=== PATIENT | male | born 2005 | race Caucasian/White ===

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

== ENCOUNTER 2023-04-29 13:32 | Outpatient (CLI) | payer OTHER, SELFPAY ==
[2023-04-29 14:58] LABS: Influenza A QL RT-PCR Negative (Negative); Influenza B QL RT-PCR Negative (Negative); SARS-CoV-2 RNA PCR Negative (Negative); Strep Group A RT-PCR Detected (Negative)
== END 2023-04-29 13:33 | disposition home or self-care (01) ==
LOC: CHSLAB 13:37
PROVIDERS: PCP Internal Medicine; Visit Provider Nurse Practitioner Family
DX: M79.10 Myalgia, unspecified site (principal); R11.0 Nausea; R53.83 Other fatigue; Z20.822 Contact with and (suspected) exposure to COVID-19
CPT/HCPCS: 87636; 87651

== ENCOUNTER 2024-03-14 02:11 | Emergency (ER) | payer OTHER, SELFPAY ==
--- NOTE | 2024-03-14 02:18 | ED.PSYCH ---
HPI - Psych General Chief Complaint: Psychiatric Symptoms Stated Complaint: suicidal Time Seen by Provider: 03/14/24 02:17 Source: patient Mode of arrival: ambulatory Limitations: no limitations History of Present Illness HPI Narrative: 18-year-old male with depression and prior suicidal attempts / ideation was brought in by the police after he called the suicide hotline for -- suicidal ideation. He wants to stab himself in the neck. He has a prior history of attempting to hang himself. No history of drug or alcohol use. he has a positive family history of depression and suicidal ideation. His grandfather killed himself. His mother is depressed. MD complaint: suicidal ideation and feels depressed Onset (ago): day(s) Duration: constant History of same: Yes Relieving factors: none Exacerbating factors: none Context: other ( He finds college courses challenging) Associated psychiatric symptoms: depression Associated symptoms: denies other symptoms Treatments prior to arrival: none If self harm: admits thoughts of self harm Related Data Home Medications Medication Instructions Recorded Confirmed No Home Medications 03/14/24 03/14/24 Allergies Allergy/AdvReac Type Severity Reaction Status Date / Time Penicillins Allergy Mild Unverified 10/24/08 13:19 Review of Systems Review of Systems: All systems reviewed & are unremarkable except as noted in HPI and below Constitutional: Constitutional: Reports as per HPI and Reports no additional constitutional complaints Eyes: Eyes: Reports as per HPI and Reports no additional eye complaints ENT: Reports system reviewed and no additional complaints, except as documented and Reports as per HPI Cardiovascular: Cardiovascular: Reports as per HPI and Reports no additional cardiovascular complaints Respiratory: Respiratory: Reports as per HPI and Reports no additional respiratory complaints Gastrointestinal: Gastrointestinal: Reports as per HPI and Reports no additional gastrointestinal complaints Genitourinary: Genitourinary: Reports no additional male genitourinary complaints and Reports as per HPI Musculoskeletal: Musculoskeletal: Reports no additional musculoskeletal complaints and Reports as per HPI Integumentary/Breasts: Skin/Breast: Reports system reviewed and no additional complaints, except as docu and Reports as per HPI Neurologic: Reports system reviewed and no additional complaints, except as documented and Reports as per HPI Psychiatric: Psychiatric: Reports no additional psychiatric complaints, Reports as per HPI, Reports depression and Reports suicidal ideation Endocrine: Endocrine: Reports no additional endocrine complaints and Reports as per HPI Hematologic/Lymphatic: Hematologic/Lymphatic: Reports no additional hematologic/lymphatic complaints and Reports as per HPI Exam Narrative: vitals are stable Const: General: no acute distress Orientation/consciousness: patient oriented x3 Limitations: no limitations HENMT: Head: normal to inspection Ears: external ears normal Face/Nose/Sinus: Normal external nose present Face and sinus: normal facial exam Mouth: Yes Normal oral and palatal mucosa present Throat: posterior oropharynx normal Eyes: Conjunctivae: conjunctivae normal Pupils: Equal, round and reactive pupils present EOM: EOMs intact bilaterally Direct Ophthalmoscopy: no photophobia Neck: Neck: normal visual inspection, no lymphadenopathy and no meningeal signs Chest: Chest palpation & inspection: normal inspection of the chest Resp: Effort & Inspection: normal respiratory effort Auscultation: clear to auscultation bilaterally Cardio: Rate: regular rate Rhythm: regular rhythm GI: GI Palp: Yes Soft to palpation : General: Yes no CVA tenderness Back/Spine/Pelvis: Back: no CVA tenderness Skin: General skin exam: normal color Rashes: no rashes Wounds: no wounds Neuro: General: patient oriented x3, moves all extremit
--- NOTE | 2024-03-14 02:20 | PC.NURSE ---
patient was changed out into paper scrubs and went back to room 5.
--- NOTE | 2024-03-14 02:23 | PC.NURSE ---
Dr Agudelo at the bedside talking with patient.
--- NOTE | 2024-03-14 02:29 | ECG_ITS ---
Test Date: 2024-03-14 02:54:44 Measurements Intervals [place] Rate: 74 P: 61 OH: 133 QRS: 69 QRSD: 90 T: 56 QT: 335 QTc: 373 Interpretive Statements SINUS RHYTHM WITH SINUS ARRHYTHMIA BASELINE ARTIFACT- I, II, III, AVR, AVL, AVF, V1-V6 NORMAL ECG No previous ECG available for comparison Electronically Signed On 03-14-2024 06:44:34 CDT by Donald Resendez D.O.
--- NOTE | 2024-03-14 02:32 | PC.NURSE ---
covid swab taken to lab
[2024-03-14 02:37] VITALS: BP 148/95; PULSE 72; RESP 12; TEMP 36.4; O2SAT 94
--- NOTE | 2024-03-14 02:38 | PC.NURSE ---
lab was notified of new lab orders.
--- NOTE | 2024-03-14 02:40 | PC.NURSE ---
patient to restroom to give urine sample. lizandro Smith, working on EKG
--- NOTE | 2024-03-14 02:41 | PC.NURSE ---
patient reluctant to talk with staff about suicidal thought. patient pulls his long hair in front of his face and does not want to look at staff.
--- NOTE | 2024-03-14 02:45 | PC.NURSE ---
lab at the bedside
--- NOTE | 2024-03-14 02:47 | PC.NURSE ---
patient is currently sitting on stretcher. calm and cooperative.
[2024-03-14 02:53] LABS: Basophils Absolute Auto 0.05 K/mm3 (0.00-0.10); Basophils Percent Auto 0.6 % (0.0-1.0); Eosinophils Absolute Auto 0.24 K/mm3 (0.02-0.50); Hemoglobin 16.1 g/dL (14.0-18.0); Immature Granulocyte Absolute 0.03 K/mm3 (0.00-0.00); Immature Granulocyte Percent A 0.4 % (0.0-0.0); Lymphocytes Absolute Auto 2.78 K/mm3 (1.10-4.50); Lymphocytes Percent Auto 35.3 % (18.0-42.0); Mean Corpuscular HGB Conc 33.5 g/dL (32-36); Mean Corpuscular Hemoglobin 30.9 pg (27.0-31.0); Mean Corpuscular Volume 92.1 fL (78.0-102.0); Mean Platelet Volume 8.9 fl (8.7-11.0); Monocytes Absolute Auto 0.59 K/mm3 (0.10-0.90); Monocytes Percent Auto 7.5 % (2.0-11.0); Neutrophils Absolute Auto 4.19 K/mm3 (1.70-7.20); Neutrophils Percent Auto 53.2 % (50.0-70.0); Platelet Count Result 361 K/mm3 (150-420); Red Blood Count 5.21 M/mm3 (4.70-6.10); Red Cell Distribution Width 11.1 % (11.6-14.4); White Blood Count 7.9 K/mm3 (4.8-10.8)
--- NOTE | 2024-03-14 02:54 | PC.NURSE ---
patient was offered food and something to drink. does not want anyt hignt right now. warm blankets were placed on the bed for patient. lights dimmed. Sarah, tech, sitting outside the room. patient is calm and cooperative
[2024-03-14 03:08] LABS: Amphetamine Screen Urine Negative (Negative); Barbiturate Screen Urine Negative (Negative); Benzodiazepines Screen Urine Negative (Negative); Cannabinoid Screen Urine Negative (Negative); Cocaine Screen Urine Negative (Negative); Methadone Screen Urine Negative (Negative); Opiate Screen Urine Negative (Negative); Phencyclidine Screen Urine Negative (Negative)
[2024-03-14 03:16] LABS: SARS-CoV-2 RNA PCR Negative (Negative)
[2024-03-14 03:21] LABS: Alanine Aminotransferase 28 U/L (16-63); Albumin Level 4.4 g/dL (3.4-5.0); Alkaline Phosphatase 73 U/L (46-116); Anion Gap 8 mmol/L (4-12); Aspartate Amino Transferase 24 U/L (15-37); Bilirubin,Total 0.5 mg/dL (0.00-1.00); Blood Urea Nitrogen 12 mg/dL (7-18); Carbon Dioxide 31 mmol/L (21-32); Chloride 97 mmol/L (98-108); Estimated CRCL calculation 91 ml/min; Estimated Glomerular Filt Rate > 60; Glucose 119 mg/dL (70-99); Osmolality Calculated 282 mOsm/kg (285-295); Potassium 3.9 mmol/L (3.5-5.1); Salicylate 0.6 mg/dL (2.8-20.0); Sodium 136 mmol/L (136-145); Thyroid Stimulating Hormone 2.41 uIU/mL (0.36-3.74); Total Protein 8.3 g/dL (6.4-8.2)
[2024-03-14 03:25] LABS: Influenza A QL RT-PCR Negative (Negative); Influenza B QL RT-PCR Negative (Negative); RSV RNA, RT-PCR Negative (Negative)
[2024-03-14 03:26] LABS: Acetaminophen < 2 ug/mL (10-30); Ethanol < 3 mg/dL (0-6)
--- NOTE | 2024-03-14 03:33 | PC.NURSE ---
Spoke with Alejandra at [facility]. She reports that someone will be here in approx 1 hour.
--- NOTE | 2024-03-14 04:00 | PC.NURSE ---
patient is resting on stretcher. currently laying on his stomach. his head is at the foot of the bed. calm and cooperative. no needs voiced.
--- NOTE | 2024-03-14 05:00 | PC.NURSE ---
resting quietly on stretcher. now laying in the correct position on stretcher. appears to be sleeping. resp even and unlabored. lizandro Smith, at the doorway. Waiting on [address] to come and evaluate patient.
--- NOTE | 2024-03-14 05:34 | PC.NURSE ---
Alejandra with [facility] at the bedside.
--- NOTE | 2024-03-14 06:00 | PC.NURSE ---
Alejandra with [facility] continues to be in room with patient
--- NOTE | 2024-03-14 06:27 | PC.NURSE ---
plan is for discharge with outpatient therapy.
--- NOTE | 2024-03-14 06:44 | PC.NURSE ---
Alejandra with [facility] is back in room with patient
[2024-03-14 06:55] VITALS: BP 137/72; PULSE 67; RESP 12; TEMP 36.4; O2SAT 97
== END 2024-03-14 07:11 | disposition home or self-care (01) ==
PROVIDERS: Emergency Provider Internal Medicine Critical Care Medicine
DX: F32.A Depression, unspecified (principal); R45.851 Suicidal ideations; Z20.822 Contact with and (suspected) exposure to COVID-19
CPT/HCPCS: 36415; 80053; 80307; 84443; 85025; 87637; 93005; 99284

== ENCOUNTER 2024-04-11 17:08 | Outpatient (CLI) | payer OTHER, SELFPAY ==
[2024-04-11 18:12] LABS: HIV 1 P24 AG Negative (Negative); HIV 1/2 AB Negative (Negative)
[2024-04-13 06:28] LABS: Hepatitis B Surface Antigen NON-REACTIVE (NON-REACTIVE); Hepatitis C Virus Antibody NON-REACTIVE (NON-REACTIVE)
[2024-04-14 11:55] LABS: RPR Screen NON-REACTIVE (NON-REACTIVE)
== END 2024-04-11 17:09 | disposition home or self-care (01) ==
LOC: CHSLAB 17:13
DX: Z11.3 Encounter for screening for infections with a predominantly sexual mode of transmission (principal)
CPT/HCPCS: 36415; 86592; 86803; 87340; 87806

== ENCOUNTER 2024-07-06 21:45 | Emergency (ER) | payer OTHER, SELFPAY ==
[2024-07-06 21:48] VITALS: BP 135/96; PULSE 109; RESP 18; TEMP 36.6; O2SAT 100
--- NOTE | 2024-07-06 21:58 | ED.ABDPAIN ---
HPI - Abdominal Pain General Chief Complaint: Abdominal Pain Stated Complaint: abdominal pain Time Seen by Provider: 07/06/24 21:50 Source: patient Mode of arrival: ambulatory Limitations: no limitations History of Present Illness HPI narrative: this is a 18 year that identifies as female that has been having some bright red blood per rectum with some currently no abdominal pain does have some nausea with no flank pain no dysuria no fever chills symptoms started earlier today. Onset (ago): hour(s) Pain Consistency: now resolved Severity: mild Related Data Allergies Allergy/AdvReac Type Severity Reaction Status Date / Time Penicillins Allergy Mild Unverified 10/24/08 13:19 Review of Systems Review of Systems: All systems reviewed & are unremarkable except as noted in HPI and below PMFSH Past Medical History Medical History Depression with suicidal ideation Social History Social History Substance use type: does not use Exam Const: General: healthy appearing and no acute distress Nutritional Appearance: well nourished Orientation/consciousness: patient oriented x3 Limitations: no limitations HENMT: Head: normal to inspection Neck: Neck: normal visual inspection Chest: Chest palpation & inspection: normal inspection of the chest Resp: Effort & Inspection: normal respiratory effort Auscultation: clear to auscultation bilaterally Cardio: Rate: regular rate Rhythm: regular rhythm GI: GI Palp: Yes Soft to palpation Auscultation: normal bowel sounds Rectal Exam: normal sphincter tone Other: Rectal exam shows some reduced external hemorrhoid currently not bleeding Course Course Emergency Course: patient received ODT Zofran for nausea patient was examined with a rectal exam showing external hemorrhoid around the 12 o'clock position currently not bleeding. Vital Signs Vital signs: Vital Signs Temperature 36.6 C 07/06/24 21:48 Pulse Rate 109 H 07/06/24 21:48 Respiratory Rate 18 07/06/24 21:48 Blood Pressure 135/96 H 07/06/24 21:48 Pulse Oximetry 100 07/06/24 21:48 Oxygen Delivery Room Air 07/06/24 21:48 Temperature 36.6 C 07/06/24 21:48 Pulse Rate 109 H 07/06/24 21:48 Respiratory Rate 18 07/06/24 21:48 Blood Pressure 135/96 H 07/06/24 21:48 Pulse Oximetry 100 07/06/24 21:48 Oxygen Delivery Room Air 07/06/24 21:48 Critical Care Time Critical Care Time Critical Care Time: No Discharge Plan Discharge Clinical Impression: Hemorrhoid prolapse Patient Disposition: Home, Self-Care Condition: Stable Instructions: Antibiotic Form, Hemorrhoids (ED), Rectal Bleeding (ED) Additional Instructions: advised to take medication as prescribed and follow with primary within the next 3 to 4 days for further evaluation and treatment. Patient Language: Czech Prescriptions: New hydrocortisone [Anusol-HC] 2.5 % cream with perineal applicator 1 applic RECTAL DAILY PRN (Reason: hemorrhoids) 7 Days Qty: 30 0RF ondansetron 4 mg tablet,disintegrating 4 mg PO Q6H PRN (Reason: nausea and vomiting) Qty: 14 0RF Follow-up/Referrals: UNKNOWN,DOCTOR [Primary Care Provider] - Time of Disposition: 22:03
[2024-07-06] MEDS: ONDANSETRON HCL ODT 4 MG TABLET PO (22:09)
== END 2024-07-06 22:24 | disposition home or self-care (01) ==
LOC: CHSED 22:06
PROVIDERS: Emergency Provider Emergency Medicine; PCP Internal Medicine
DX: K64.8 Other hemorrhoids (principal)
CPT/HCPCS: 99283; A9270

== ENCOUNTER 2024-10-18 22:19 | Emergency (ER) | payer SELFPAY ==
[2024-10-18 22:42] VITALS: BP 121/80; PULSE 100; RESP 18; TEMP 36.8; O2SAT 98
--- NOTE | 2024-10-18 22:50 | PC.NURSE ---
PATIENT WAS CHANGED OUT INTO PAPER SCRUBS. PERSONAL ITEMS PLACED IN SECURED AREA. PATIENT IS CALM AND COOPERATIVE. SINA MCFADDEN, AT THE BEDSIDE SITTER
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
--- NOTE | 2024-10-18 23:07 | ECG_ITS ---
Test Date: 2024-10-18 23:21:20 Measurements Intervals [place] Rate: 102 P: 71 AL: 129 QRS: 79 QRSD: 92 T: 62 QT: 339 QTc: 442 Interpretive Statements SINUS TACHYCARDIA BASELINE ARTIFACT- I, II, III, AVR, AVL, AVF, V1-V3 BORDERLINE ECG COMPARED WITH PRIOR ECG 03-14-24 02:54 HEART RATE HAS INCREASED Electronically Signed On 10-19-2024 05:40:04 CDT by Donald Resendez D.O.
--- NOTE | 2024-10-18 23:16 | PC.NURSE ---
URINE TAKEN DOWN TO LAB
--- NOTE | 2024-10-18 23:22 | PC.NURSE ---
covid swab sent to lab
[2024-10-18 23:27] LABS: Basophils Absolute Auto 0.05 K/mm3 (0.00-0.10); Basophils Percent Auto 0.4 % (0.0-1.0); Eosinophils Absolute Auto 0.14 K/mm3 (0.02-0.50); Eosinophils Percent Auto 1.1 % (1.0-6.0); Hematocrit 42.2 % (40.0-54.0); Immature Granulocyte Absolute 0.07 K/mm3 (0.00-0.00); Immature Granulocyte Percent A 0.5 % (0.0-0.0); Lymphocytes Absolute Auto 2.53 K/mm3 (1.10-4.50); Mean Corpuscular HGB Conc 33.2 g/dL (32-36); Mean Corpuscular Hemoglobin 31.8 pg (27.0-31.0); Mean Corpuscular Volume 95.9 fL (78.0-102.0); Mean Platelet Volume 8.8 fl (8.7-11.0); Monocytes Absolute Auto 0.72 K/mm3 (0.10-0.90); Monocytes Percent Auto 5.4 % (2.0-11.0); Neutrophils Absolute Auto 9.79 K/mm3 (1.70-7.20); Neutrophils Percent Auto 73.6 % (50.0-70.0); Platelet Count Result 430 K/mm3 (150-420); Red Cell Distribution Width 11.3 % (11.6-14.4); White Blood Count 13.3 K/mm3 (4.8-10.8)
[2024-10-18 23:30] LABS: Add Urine Microscopic? NO; Appearance Urine Clear (Clear); Bilirubin Urine Negative (Negative); Blood Urine Negative (Negative); Color Urine Yellow (Yellow); Glucose Urine UA Negative (Negative); Ketones Urine 1+ (Negative); Leukocyte Esterase Ur Negative LEU/UL (Negative); Nitrate Urine Negative (Negative); Protein Urine Negative (Negative); Specific Grav Ur >= 1.030 (1.010-1.020); Urobilinogen Urine 0.2 mg/dL (0.2-1.0)
[2024-10-18 23:37] LABS: Amphetamine Screen Urine Negative (Negative); Barbiturate Screen Urine Negative (Negative); Benzodiazepines Screen Urine Negative (Negative); Cannabinoid Screen Urine Positive (Negative); Cocaine Screen Urine Negative (Negative); Methadone Screen Urine Negative (Negative); Opiate Screen Urine Negative (Negative); Phencyclidine Screen Urine Negative (Negative)
--- NOTE | 2024-10-18 23:41 | PC.NURSE ---
PATIENT IS REQUESTING CELL PHONE. INFORMED PATIENT THAT CELL PHONE WILL REMAIN IN SECURED AREA FOR DURATION ON HOSPITAL VISIT.
[2024-10-18 23:51] LABS: Alanine Aminotransferase 27 U/L (16-63); Alkaline Phosphatase 71 U/L (46-116); Anion Gap 6 mmol/L (4-12); Aspartate Amino Transferase 22 U/L (15-37); Bilirubin,Total 0.9 mg/dL (0.00-1.00); Blood Urea Nitrogen 9 mg/dL (7-18); Calcium 8.8 mg/dL (8.5-10.1); Carbon Dioxide 29 mmol/L (21-32); Chloride 103 mmol/L (98-108); Estimated CRCL calculation 97 ml/min; Estimated Glomerular Filt Rate > 60; Glucose 87 mg/dL (70-99); Osmolality Calculated 283 mOsm/kg (285-295); Sodium 138 mmol/L (136-145); Thyroid Stimulating Hormone 1.12 uIU/mL (0.36-3.74); Total Protein 7.8 g/dL (6.4-8.2)
[2024-10-18 23:56] LABS: Acetaminophen < 2 ug/mL (10-30); Salicylate 1.4 mg/dL (2.8-20.0)
--- NOTE | 2024-10-19 | PC.NURSE ---
PATIENT IS CURRENTLY RESTING ON BED IN ROOM 5. CALM AND COOPERATIVE. APPEARS TO BE SLEEPING. RESP EVEN AND UNLABORED. SINA MCFADDEN, OUTSIDE THE ROOM SITTER
[2024-10-19 00:14] LABS: Influenza A QL RT-PCR Negative (Negative); Influenza B QL RT-PCR Negative (Negative); RSV RNA, RT-PCR Negative (Negative); SARS-CoV-2 RNA PCR Negative (Negative)
--- NOTE | 2024-10-19 00:35 | PC.NURSE ---
[facility] STAFF AT THE BEDSIDE
--- NOTE | 2024-10-19 01:00 | PC.NURSE ---
[facility] WITH PATIENT IN ROOM 5. PATIENT APPEARS TO BE CALM AND COOPERATIVE.
--- NOTE | 2024-10-19 01:38 | PC.NURSE ---
PATIENT WAS TOLD OF ADMISSION. PATIENT WANTS CELL PHONE TO MAKE CALLS. INFORMED PATIENT THAT CELL PHONE COULD NOT BE RETURNED AT THIS TIME. PATIENT IS CURRENTLY TALKING WITH [employer]
--- NOTE | 2024-10-19 02:00 | PC.NURSE ---
PATIENT IS RESTING ON BED IN ROOM 5. CALM AND COOPERATIVE. WATCHING TV. SINA MCFADDEN, SITTING AT THE BEDSIDE
--- NOTE | 2024-10-19 02:31 | PC.NURSE ---
PATIENT REQUESTED THAT FRIEND, RULA, BE CALLED TO GO TO APARTMENT AND COLLECT SOME PERSONAL ITEMS.
--- NOTE | 2024-10-19 02:35 | PC.NURSE ---
BAG OF PERSONAL BELONGINGS WAS TAKEN TO ROOM SO PATIENT COULD GET OUT [employer]. [employer]SE [employer] WILL BE GIVEN TO FRIEND, RULA, SO HE CAN COLLECT PERSONAL ITEMS
--- NOTE | 2024-10-19 02:40 | PC.NURSE ---
FRIEND, RULA, AT THE BEDSIDE
[2024-10-19 02:42] VITALS: BP 132/76; PULSE 98; RESP 18; TEMP 36.6; O2SAT 98
--- NOTE | 2024-10-19 03:00 | PC.NURSE ---
PATIENT IS CURRENTLY SITTING ON THE FLOOR IN THE DOORWAY OF ROOM 5. CALM AND COOPERATIVE. TALKING WITH SINA MCFADDEN, WHO IS CURRENTLY A SITTER
--- NOTE | 2024-10-19 03:35 | PC.NURSE ---
FRIEND, RULA, BROUGHT IN A SWEATSHIRT, TWO PILLOWS, A BLANKET AND COMPUTER BAG. ALL PLACED IN PERSONAL BELONGINGS BAGS AND PLACED IN SECURED ROOM
--- NOTE | 2024-10-19 03:39 | PC.NURSE ---
PATIENTS DEMEANOR IS DIFFERENT WITH FRIEND IN THE ER. PATIENT IS LAUGING AND JOKING. WALKING AROUND WITH THE FRIEND BY ROOM WITH SINA MCFADDEN, CLOSE BY. ENCORPORATING SINA MCFADDEN, IN CONVERSTATIONS BEING HAD.
--- NOTE | 2024-10-19 04:15 | PC.NURSE ---
PATIENT IS CALM AND COOPERATIVE. FRIEND, RULA, AT THE BEDSIDE. SINA MCFADDEN, SITTER
--- NOTE | 2024-10-19 05:00 | PC.NURSE ---
PATIENT IS CURRENTLY LAYING ON BED IN ROOM 5. FRIEND HAS GONE HOME. CALM AND COOPERATIVE. WATCHING TV. SINA MCFADDEN, AT THE BEDSIDE SITTER.
--- NOTE | 2024-10-19 06:00 | PC.NURSE ---
PATIENT IS RESTING ON BED IN ROOM 5. CONTINUES TO BE AWAKE. CALM AND COOPERATIVE. WATCHING TV. DENIES ANY NEEDS. SINA MCFADDEN, AT THE BEDSIDE SITTER
--- NOTE | 2024-10-19 06:41 | PC.NURSE ---
PATIENT AMBULATED TO THE BATHROOM AND BACK TO ROOM WITHOUT DIFFICULTY. CALM AND COOPERATIVE. SINA MCFADDEN, SITTER BY THE ROOM
[2024-10-19 06:44] VITALS: BP 118/73; PULSE 85; RESP 18; TEMP 36.4; O2SAT 99
[2024-10-19 10:44] VITALS: BP 102/67; PULSE 82; RESP 14; TEMP 36.3; O2SAT 98
[2024-10-19 11:52] LABS: Ethanol < 3 mg/dL (0-6)
[2024-10-19 14:49] VITALS: BP 122/82; PULSE 90; RESP 16; TEMP 36.8; O2SAT 100
[2024-10-19 18:39] VITALS: BP 125/79; PULSE 96; RESP 18; TEMP 36.9; O2SAT 99
--- NOTE | 2024-10-19 19:10 | PC.NURSE ---
Report received, pt resting w/ sitter at bedside, awaiting callback from facilities for beds. Pt is cooperative, noted flat affect and not wanting to talk much.
--- NOTE | 2024-10-19 19:45 | PC.NURSE ---
Pt is accepted at [facility], report given to RN at [facility].
--- NOTE | 2024-10-19 20:08 | PC.NURSE ---
Dr Ramos gave ok for pt to give herself her home med injection of estradiol before leaving w/ EMS. Pt gave injection of home med under supervision of RN and tech.
[2024-10-19 20:20] VITALS: BP 121/75; PULSE 97; RESP 18; TEMP 36.8; O2SAT 98
== END 2024-10-19 20:20 ==
PROVIDERS: Internal Medicine Critical Care Medicine; Emergency Provider Emergency Medicine; PCP Internal Medicine
DX: F32.A Depression, unspecified (principal); S41.112A Laceration without foreign body of left upper arm, initial encounter; S41.111A Laceration without foreign body of right upper arm, initial encounter; S81.012A Laceration without foreign body, left knee, initial encounter; S81.011A Laceration without foreign body, right knee, initial encounter; Z20.822 Contact with and (suspected) exposure to COVID-19; X78.9XXA Intentional self-harm by unspecified sharp object, initial encounter
CPT/HCPCS: 36415; 80053; 80143; 80179; 80307; 81003; 82077; 83735; 84443; 85025; 87637; 93005; 99285